=== PATIENT | male | born 1985 | race Two or more races ===

== ENCOUNTER 2022-06-11 11:37 | Outpatient (REF) | payer BC, SELFPAY ==
[2022-06-11 13:49] LABS: MANUAL DIFF FLAG NO
[2022-06-11 14:10] LABS: Basophils Absolute Auto 0.1 X10*3/uL (0.0-0.2); Eosinophils Absolute Auto 0.2 X10*3/uL (0.0-0.4); Eosinophils Percent Auto 3.8 % (0-4); Hematocrit 43.3 % (42.0-52.0); Hemoglobin 14.2 g/dl (14.0-18.0); Imm Gran Abs Auto 0.01 X10*3/uL (0.00-0.03); Imm Gran Pct Auto 0.2 % (0.0-0.4); Lymphocytes Absolute Auto 2.9 X10*3/uL (1.2-4.9); Lymphocytes Percent Auto 45.6 % (20-40); Mean Corpuscular HGB Conc 32.8 g/dl (31.0-36.0); Mean Corpuscular Hemoglobin 27.1 pg (27.0-33.0); Mean Corpuscular Volume 82.6 fL (80.0-98.0); Mean Platelet Volume 11.1 fL (9.4-12.4); Monocytes Absolute Auto 0.3 X10*3/uL (0.1-1.2); Monocytes Percent Auto 5.1 % (2-11); Neutrophils Absolute Auto 2.8 x10*3/uL (2.0-8.3); Neutrophils Percent Auto 44.3 % (45-73); Platelet Count 171 X10*3/uL (160-400); Red Blood Count 5.24 X10*6/uL (4.60-5.80); Red Cell Distribution Width 12.9 % (11.0-16.0); White Blood Count 6.3 X10*3/uL (4.8-10.8)
[2022-06-11 14:42] LABS: Alanine Aminotransferase 47 U/L (0-40); Albumin Level 4.3 g/dL (3.5-5.0); Alkaline Phosphatase 79 U/L (39-117); Anion Gap 10 (12-20); Aspartate Amino Transferase 29 U/L (5-37); Bilirubin Total 0.6 mg/dL (0.0-1.0); Blood Urea Nitrogen 17 mg/dL (9-16); C Reactive Protein 0.32 mg/dL (< or = 0.50); Calcium 9.1 mg/dL (8.4-10.2); Carbon Dioxide 26 mmol/L (22-29); Chloride 108 mmol/L (96-108); Estimated Glomerular Filt Rate > 60; Glucose Random 89 mg/dL (60-115); Iron 57 mcg/dL (45-160); Percent Iron Saturation 21 % (15-50); Potassium 4.2 mmol/L (3.3-5.1); Sodium 140 mmol/L (135-145); Total Iron Binding Capacity 271 mcg/dL (228-428); Total Protein 7.1 g/dL (6.5-8.0); Unsaturated Iron Binding 214 ug/dL
[2022-06-11 15:12] LABS: Folate 7.6 ng/mL (> or = 4.0); Vitamin B12 269 pg/mL (200-900); Vitamin D 25-OH Total 12.8 ng/mL (>30)
[2022-06-12 15:27] LABS: H Pylori Breath Test Positive (Negative)
[2022-06-14 08:03] LABS: IgA 182 mg/dL (47-310); IgG 1372 mg/dL (600-1640); IgM 101 mg/dL (50-300)
[2022-06-14 23:13] LABS: Vitamin C 0.9 mg/dL (0.2-2.1)
[2022-06-17 18:18] LABS: Vitamin A 43 mcg/dL (38-98)
[2022-06-19 07:39] LABS: Immunoglobulin G Subclass 1 518 mg/dL (382-929); Immunoglobulin G Subclass 2 509 mg/dL (241-700); Immunoglobulin G Subclass 3 114 mg/dL (22-178); Immunoglobulin G Subclass 4 31.5 mg/dL (4-86); Immunoglobulin G Total 1198 mg/dL (600-1640)
== END 2022-06-11 11:38 | disposition home or self-care (01) ==
LOC: HO.LAB 11:37
PROVIDERS: Visit Provider Internal Medicine Gastroenterology
DX: R10.13 Epigastric pain (principal); A04.8 Other specified bacterial intestinal infections; E46 Unspecified protein-calorie malnutrition; K75.81 Nonalcoholic steatohepatitis (NASH)
CPT/HCPCS: 36415; 80053; 82180; 82306; 82607; 82746; 82784; 83013; 83540; 84590; 85025; 86140

== ENCOUNTER → 2022-06-12 11:15 | Day surgery (SDC) | payer BC, SELFPAY ==
[2022-06-12 11:53] VITALS: BMI 23.6
[2022-06-12 12:12] VITALS: BP 121/60; PULSE 60; RESP 18; TEMP 36.6; O2SAT 100
[2022-06-12] MEDS: Lactated Ringers 1,000 ML 50 ML IVCONT (12:14)
--- NOTE | 2022-06-12 12:45 | HO.ANESPROP2 ---
[facility] Active Problems Active Problems: All Active Problems (Updated 06/12/22 @ 11:52 by Tasneem Maldonado RN) H. pylori infection (Acute) Epigastric abdominal pain (Acute) Malnutrition (Acute) Past Medical History Medical History Borderline high cholesterol GERD (gastroesophageal reflux disease) History of Helicobacter pylori infection Surgical History Surgical History Hx of wisdom tooth extraction Social History Social History Patient Tobacco Use Status: Never used Tobacco Use of substances other than those prescribed or required for medical reasons: No Are you DNR?: No Advance Directives: No Advance Directives Information Provided: Yes Meds Allergies Allergy/AdvReac Type Severity Reaction Status Date / Time bee pollen Allergy Mild Unknown Verified 06/11/22 11:54 Active Medications: Current Medications Lactated Ringer's (Lr) 1,000 mls @ 50 mls/hr IVCONT .Q20H ISHMAEL Last Admin: 06/12/22 12:14 Dose: 50 mls/hr Home Medications Medication Instructions Recorded Confirmed Last Taken Type bismuth subsalicylate 262 mg/15 mL 524 mg PO Q30M PRN Allergy Symptoms 06/11/22 06/12/22 Unknown History oral suspension (Pepto-Bismol) fexofenadine 60 mg tablet (Randa 60 mg PO BID 06/11/22 06/12/22 Unknown History Allergy) Exam Exam Date and Time: June 12, 2022 1245 Height,Weight and Vital Signs: Height 5 ft 9 in Weight 72.575 kg Last Vital Signs Temp 97.8 F 06/12/22 12:12 Pulse 60 06/12/22 12:12 Resp 18 06/12/22 12:12 BP 121/60 06/12/22 12:12 Pulse Ox 100 06/12/22 12:12 O2 Del Method Room Air 06/12/22 12:12 Airway Mallampati Class: II TM Dist: >3cm Neck ROM: Full Heart: RRR Lungs: CTA Assessment and Plan Final Anesthetic Review Patient Risk: Low Procedure Risk: Low Anesthetic Plan Anesthetic Plan: MAC: Disposition: Standard PACU
--- NOTE | 2022-06-12 13:03 | MHC.SHP ---
Pre-Procedural Eval Section A Date of Service: 06/12/22 The patient is an INPATIENT: No The History & Physical has been completed within 30 days and I have reviewed it.: Yes Section B Chief Complaint: protein-calorie malnutrition,epigastric pain, Allergies: Allergies Allergy/AdvReac Type Severity Reaction Status Date / Time bee pollen Allergy Mild Unknown Verified 06/11/22 11:54 Plan Diagnosis/Plan: Unchanged I have reviewed the history and physical and performed a pertinent physical examination on my patient. No changes have occurred unless specified. Time Spent With Patient Time: Total time managing care of this patient today ____ minutes.
--- NOTE | 2022-06-12 13:03 | W.PM.OPN ---
Operative Note Operative Note Date of Service: 06/12/22 Narrative: Procedure Description: EGD Indication: epigastric pain Anesthesia: MAC FLEXIBLE TRANSORAL UPPER GASTROINTESTINAL ENDOSCOPY UPPER ENDOSCOPY Consent: Indications for the procedure and potential complications of bleeding, perforation, reaction to medications and missed diagnosis were discussed with the patient and informed consent was obtained. Instrument: Olympus GIF H 190 J mid size upper endoscope Monitoring: Vital signs and clinical assessment, continuous EKG monitoring, Pulse oximetry, Carbon Dioxide monitoring and blood pressure monitoring were done throughout the procedure. Procedure: The patient was placed in the left lateral decubitis position and pre-procedure medications were administered and a bite block was placed. The endoscope was inserted into the mouth and advanced under direct vision to the third part of duodenum. A careful inspection was made as the upper endoscope was withdrawn including a retroflexed examination of the proximal stomach; Findings and interventions are described below. Findings: Larynx:normal Esophagus: GE junction at 40 cm, diaphragm hiatus at 40 cm, mild inflammation at GEJ, bx taken Stomach: mild gastric erythema. Biopsies were obtained. Grade 2 flap valve on retroflexed examination of the cardia. Duodenum: Patchy erythema, bx taken Intervention: Biopsies as noted above Impression/Findings: duodenitis mild gastritis mild esophagitis PLAN: await bx, samples also sent for H pylori C/S
[2022-06-12 13:41] VITALS: BP 114/62; PULSE 65; RESP 14; TEMP 36.4; O2SAT 99
[2022-06-12 13:56] VITALS: BP 109/68; PULSE 60; RESP 16; O2SAT 100
[2022-06-12 14:11] VITALS: BP 114/73; PULSE 60; RESP 16; TEMP 36.4; O2SAT 100
== END | disposition home or self-care (01) ==
PROVIDERS: Visit Provider Internal Medicine Gastroenterology
PROC: 0DJ08ZZ Inspection of Upper Intestinal Tract, Via Natural or Artificial Opening Endoscopic (ICD-10-PCS; CPT 43235; principal; 2022-06-12 13:00)
DX: K29.50 Unspecified chronic gastritis without bleeding (principal); B96.81 Helicobacter pylori [H. pylori] as the cause of diseases classified elsewhere; E46 Unspecified protein-calorie malnutrition; Z68.24 Body mass index [BMI] 24.0-24.9, adult; K20.80 Other esophagitis without bleeding; K29.80 Duodenitis without bleeding; K44.9 Diaphragmatic hernia without obstruction or gangrene; Z87.19 Personal history of other diseases of the digestive system; R14.2 Eructation; K21.9 Gastro-esophageal reflux disease without esophagitis; Z79.899 Other long term (current) drug therapy
CPT/HCPCS: 43239; 36415; 87081; 88305; 88342

== ENCOUNTER → 2022-07-16 11:47 | Outpatient (BNVA) | payer BC, SELFPAY | PROVIDERS: Visit Provider Internal Medicine Gastroenterology ==

== ENCOUNTER 2022-07-30 09:01 | Outpatient (REF) | payer BC, SELFPAY ==
[2022-07-31 13:06] LABS: H Pylori Breath Test Positive (Negative)
== END 2022-07-30 09:02 | disposition home or self-care (01) ==
LOC: HO.LNP 09:01
PROVIDERS: Visit Provider Internal Medicine Gastroenterology
DX: Z11.2 Encounter for screening for other bacterial diseases (principal)
CPT/HCPCS: 83013

== ENCOUNTER 2024-06-19 22:38 | Emergency (ER) | payer BC, SELFPAY ==
--- NOTE | ~2024-06-19 | CT_ITS ---
CLINICAL HISTORY: closed head injury CT head without contrast Comparison: None Findings: There is no acute intracranial hemorrhage. Ventricles are of normal size and shape. No mass effect or midline shift is present. The coley-white matter differentiation appears normal. The visualized portions of the orbits, paranasal sinuses, and mastoids are unremarkable. No fractures are identified. IMPRESSION: Normal noncontrast head CT. This document has been electronically signed by: Jose Raza MD on 06/20/2024 00:18:31
[2024-06-19 22:40] VITALS: BP 124/76; PULSE 59; RESP 18; TEMP 36.1; O2SAT 98; BMI 25.8
--- NOTE | 2024-06-19 23:28 | PC.NURSE ---
Reviewed discharge instructions with pt. pt verbalized understanding, no sign of distress.
[2024-06-19 23:29] VITALS: BP 124/76; PULSE 59; RESP 18; TEMP 36.1; O2SAT 98
--- NOTE | 2024-06-19 23:36 | ED.HEATRA ---
HPI - Head Injury General Chief complaint: Head Injury Stated complaint: head injury Time Seen by Provider: 06/19/24 22:40 Source: patient Mode of arrival: ambulatory Limitations: no limitations History of Present Illness ED Provider: HPI Narrative: Patient apparently got hit by the automatic glass door to his right forehead at around 13:30 since then complaining of headache dizziness forgetting words no nausea no vomiting no seizures patient not on any blood thinners Related Data Home Medications ?Medication ?Instructions ?Recorded ?Confirmed bismuth subsalicylate 262 mg/15 mL 524 mg PO Q30M PRN Allergy Symptoms 06/11/22 06/12/22 oral suspension (Pepto-Bismol) fexofenadine 60 mg tablet (Randa 60 mg PO BID 06/11/22 06/12/22 Allergy) Previous Rx's ?Medication ?Instructions ?Recorded bismuth subsalicylate 262 mg 2 tab PO QID 14 days #112 tabs 06/21/22 chewable tablet cholecalciferol (vitamin D3) 25 25 mcg PO DAILY #90 caps 06/21/22 mcg (1,000 unit) capsule metronidazole 500 mg tablet 500 mg PO TID 14 days #42 tabs 06/21/22 pantoprazole 20 mg tablet,delayed 20 mg PO BID 2 weeks #28 tabs 06/21/22 release tetracycline 500 mg capsule 500 mg PO Q6H 14 days #56 caps 06/21/22 Allergies Allergy/AdvReac Type Severity Reaction Status Date / Time bee pollen Allergy Mild Unknown Verified 06/19/24 22:42 Review of Systems Review of Systems: Yes all other systems are reviewed and are negative [facility] Past Medical History Medical History History of Helicobacter pylori infection GERD (gastroesophageal reflux disease) Borderline high cholesterol Surgical History History of esophagogastroduodenoscopy (EGD) Hx of wisdom tooth extraction Social History Social History Patient Tobacco Use Status: Never used Tobacco Advance Directives: No Advance Directives Information Provided: No Do you have a plan to hurt others: No Plan Physical Exam Vital Signs: Vital Signs: Last Vital Signs Temp 97.0 F 06/19/24 23:29 Pulse 59 06/19/24 23:29 Resp 18 06/19/24 23:29 BP 124/76 06/19/24 23:29 Pulse Ox 98 06/19/24 23:29 O2 Del Method Room Air 06/19/24 23:29 BMI result Body Mass Index 25.8 Appearance: Alert. Oriented X3. No acute distress. Eyes: PERRLA, No Nystagmus HEENT: Pharynx normal. Oral Mucosa moist soft tissue swelling right forehead Neck: Normal inspection. Neck supple. CVS: Normal heart rate and rhythm. Pulses normal. Respiratory: No respiratory distress. Equal air entry bilateral, no wheezing/rales/rhonchi Abdomen: Soft and nontender. Bowel sounds are present, no mass palpable, no CVA tenderness Skin: Skin warm and dry. Normal skin color. Normal skin turgor. Extremities: No lower extremity edema. No calf tenderness Neuro: Oriented X 3. No motor deficit. No sensory deficit.No cerebellar signs , cranial nerves II-XII intact Medical Decision Making Medical Decision Making MDM Narrative: Patient is status post minor head injury CT scan of the head is negative for acute eyes precautions and follow up with PCP Radiology Impression Discussion of test interpretation with radiology: I have reviewed the radiologist's reading. Radiologist Impression: Normal noncontrast head CT. Discharge Plan Discharge Clinical Impression: Closed head injury Patient Disposition: Home, Self-Care Instructions: Head Injury (ED) Additional Instructions: Care and cautions as advised Report to ER if increased vomiting/seizure/focal deficit Prescriptions: No Action metronidazole 500 mg tablet 500 mg PO TID 14 Days Qty: 42 0RF pantoprazole 20 mg tablet,delayed release (DR/EC) 20 mg PO BID 14 Days Qty: 28 0RF bismuth subsalicylate 262 mg tablet,chewable 2 tab PO QID 14 Days Qty: 112 0RF tetracycline 500 mg capsule 500 mg PO Q6H 14 Days Qty: 56 0RF cholecalciferol (vitamin D3) 25 mcg (1,000 unit) capsule 25 mcg PO DAILY Qty: 90 2RF fexofenadine [Randa Allergy] 60 mg tablet 60 mg PO BID bismuth subsalicylate [Pepto-Bismol] 262 mg/15 mL suspension 524 mg PO Q30M PRN (Reason: Allergy Symptoms) Rx Instructions: do not exceed 8 doses in a 24 hour period Interventions: ED Discharge Assessment Last Done: 06/19/24 23:29 Discharge Date/Time: 06/19/24 23:30 Print Language: Bulgarian
== END 2024-06-19 23:30 | disposition home or self-care (01) ==
PROVIDERS: Emergency Provider Internal Medicine
DX: S09.90XA Unspecified injury of head, initial encounter (principal); W22.8XXA Striking against or struck by other objects, initial encounter; Y93.9 Activity, unspecified; Y92.9 Unspecified place or not applicable; Y99.9 Unspecified external cause status
CPT/HCPCS: 70450; 99284

== ENCOUNTER → 2024-06-19 22:40 | Outpatient (BNV) | payer BC, SELFPAY | PROVIDERS: Emergency Provider Internal Medicine; Visit Provider Radiology Diagnostic Radiology | DX: S06.0X0A Concussion without loss of consciousness, initial encounter (principal) | CPT/HCPCS: 70450 ==

== ENCOUNTER → 2024-08-24 00:04 | Outpatient (BNV) | payer BC, SELFPAY | PROVIDERS: Emergency Provider Internal Medicine; PCP Internal Medicine; Visit Provider Radiology Diagnostic Radiology | DX: M25.512 Pain in left shoulder (principal) | CPT/HCPCS: 71045; 73030 ==

== ENCOUNTER 2024-08-24 00:38 | Emergency (ER) | payer BC, SELFPAY ==
--- NOTE | ~2024-08-24 | XR_ITS ---
CLINICAL HISTORY: shoulder pain 3 view left shoulder Comparison: None provided Findings: Bones intact. No dislocations. The left humeral head is appropriately positioned with respect to the left glenoid. No radiopaque foreign body. IMPRESSION: 1. No acute fracture or dislocation injury identified at the left shoulder. This document has been electronically signed by: Crow Flores MD on 08/24/2024 02:06:36
--- NOTE | ~2024-08-24 | XR_ITS ---
CLINICAL HISTORY: l shoulder pain ?cardiac 1 view chest x-ray. Comparison: None provided. Findings: No consolidation, pneumothorax, or effusion. Heart size normal. Impression: 1. No acute cardiopulmonary process. No focal pulmonary consolidation. This document has been electronically signed by: Crow Flores MD on 08/24/2024 03:57:10
[2024-08-24 00:45] VITALS: BP 122/86; PULSE 62; RESP 16; TEMP 36.6; O2SAT 97; BMI 26.3
--- NOTE | 2024-08-24 00:54 | ECG_ITS ---
Test Reason : CHEST PAIN Blood Pressure : */* mmHG Vent. Rate : 54 BPM Atrial Rate : 54 BPM P-R Int : 166 ms QRS Dur : 86 ms QT Int : 416 ms P-R-T Axes : 64 22 50 degrees QTcB Int : 394 ms Sinus bradycardia Otherwise normal ECG No previous ECGs available Referred By: Generic ED Physician Electronically Signed By: SHEILA MONTENEGRO
--- NOTE | 2024-08-24 00:58 | ED_ITS ---
HPI - Extremity Problem General Chief complaint: Extremity Injury, Upper Stated complaint: Left arm pain Time Seen by Provider: 08/24/24 00:57 Source: patient Mode of arrival: ambulatory Limitations: no limitations History of Present Illness ED Provider: HPI Narrative: Patient has no known coronary artery disease but does have strong family history of coronary artery disease in involving his father and uncles with the age of 40s patient is nonsmoker active,thin built comes here for left shoulder pain patient does have frequent shoulder problems and had a massage earlier yesterday and in the evening noticed pain in the left shoulder and the left forearm which is dull with slight numbness feeling pain is intermittent lasting only for few minutes no shortness a breath. Patient does have chronic left shoulder pain no neck injury no recent injury Related Data Home Medications ?Medication ?Instructions ?Recorded ?Confirmed bismuth subsalicylate 262 mg/15 mL 524 mg PO Q30M PRN Allergy Symptoms 06/11/22 06/12/22 oral suspension (Pepto-Bismol) fexofenadine 60 mg tablet (Randa 60 mg PO BID 06/12/22 Allergy) Previous Rx's ?Medication ?Instructions ?Recorded bismuth subsalicylate 262 mg 2 tab PO QID 14 days #112 tabs 06/21/22 chewable tablet cholecalciferol (vitamin D3) 25 25 mcg PO DAILY #90 ca ps 06/21/22 mcg (1,000 unit) capsule metronidazole 500 mg tablet 500 mg PO TID 14 days #42 tabs 06/21/22 pantoprazole 20 mg tablet,delayed 20 mg PO BID 2 weeks #28 tabs 06/21/22 release tetracycline 500 mg capsule 500 mg PO Q6H 14 days #56 caps 06/21/22 cyclobenzaprine 10 mg tablet 10 mg PO TID #10 tabs Allergies Allergy/AdvReac Type Severity Reaction Status Date / Time pollen extracts Allergy Itchy Eyes Verified 08/24/24 00:53 Review of Systems 2 Review of Systems: Yes all other systems are reviewed and are negative [facility] Past Medical History Medical History History of Helicobacter pylori infection GERD (gastroesophageal reflux disease) Borderline high cholesterol Surgical History History of esophagogastroduodenoscopy (EGD) Hx of wisdom tooth extraction Social History Social History Patient Tobacco Use Status: Never used Tobacco Advance Directives: No Advance Directives Information Provided: No Do you have a plan to hurt others: No Plan Physical Exam 2 Vital Signs: Vital Signs: Last Vital Signs Temp 97.6 F 08/24/24 02:58 Pulse 57 08/24/24 02:58 Resp 16 08/24/24 02:58 BP 123/70 08/24/24 02:58 Pulse Ox 98 08/24/24 02:58 O2 Del Method Room Air 08/24/24 02:58 BMI result Body Mass Index 26.3 Appearance: Alert. Oriented X3. No acute distress. Eyes: PERRLA, No Nystagmus ENT: Pharynx normal. Oral Mucosa moist Neck: Normal inspection. Neck supple. CVS: Normal heart rate and rhythm. Pulses normal. Respiratory: No respiratory distress. Equal air entry bilateral, no wheezing/rales/rhonchi Abdomen: Soft and nontender. Bowel sounds are present, no mass palpable, no CVA tenderness Skin: Skin warm and dry. Normal skin color. Normal skin turgor. Extremities: No lower extremity edema. No calf tenderness local tenderness left trapezius area no objective findings Neuro: Oriented X 3. No motor deficit. No sensory deficit.No cerebellar signs , cranial nerves II-XII intact Course Reevaluation(s) Reevaluation #1: Second cardiac enzyme is negative. Patient is resting comfortably, stable for discharge at this point. Discussed importance of follow-up as well as strict return precautions. Provided with muscle relaxer for shoulder pain. Discharged in stable condition. Time: 03:52 Medical Decision Making Medical Decision Making MDM Narrative: Patient has atypical left-sided shoulder pain no left-sided chest but does have a strong family history of cardiac events at age of 40s initial troponin EKG negative at this time patient is asymptomatic will repeat cardiac enzymes in 2 hours Differential Diagnosis Differential Diagnoses: The differential diagnosis associated with the presentation includes ACS/costochondritis/chest wall/shoulder pain Lab Data [facility] Lab Attestation statement: I reviewed the patient's lab results. 08/24/24 01:09 08/24/24 01:09 Labs: Lab Results 07/14/25 07/14/25 Range/Units 01:09 02:58 WBC 7.8 (4.8-10.8) X10*3/uL RBC 4.93 (4.60-5.80) X10*6/uL Hgb 13.5 L (14.0-18.0) g/dl Hct 38.1 L (42.0-52.0) % MCV 77.3 L (80.0-98.0) fL MCH 27.4 (27.0-33.0) pg MCHC 35.4 (31.0-36.0) g/dl RDW 12.9 (11.0-16.0) % Plt Count 159 L (160-400) X10*3/uL MPV 10.6 (9.4-12.4) fL Immature Gran % (Auto) 0.1 (0.0-0.4) % Neut % (Auto) 39.1 L (45-73) % Lymph % (Auto) 48.1 H (20-40) % Burke % (Auto) 7.4 (2-11) % Eos % (Auto) 4.7 H (0-4) % Baso % (Auto) 0.6 (0-2) % Lymph # (Auto) 3.8 (1.2-4.9) X10*3/uL Burke # (Auto) 0.6 (0.1-1.2) X10*3/uL Eos # (Auto) 0.4 (0.0-0.4) X10*3/uL Baso # (Auto) 0.1 (0.0-0.2) X10*3/uL Abs Immat Gran (auto) 0.01 (0.00-0.03) X10*3/uL Absolute Neuts (auto) 3.1 (2.0-8.3) x10*3/uL Absolute Nucleated RBC 0.000 (0.0-0.012) X10*3/uL Nucleated RBC % (auto) 0.0 (0.0-0.2) /100WBC Sodium 143 (135-145) mmol/L Potassium 4.1 (3.3-5.1) mmol/L Chloride 112 H (96-108) mmol/L Carbon Dioxide 21 L (22-29) mmol/L Anion Gap 14 (12-20) BUN 22 H (9-16) mg/dL Creatinine 1.11 (0.5-1.4) mg/dL Estim Creat Clear Calc 87.5 Estimated GFR > 60 Random Glucose 113 (60-115) mg/dL Calcium 9.3 (8.4-10.2) mg/dL Total Bilirubin 0.3 (0.0-1.0) mg/dL AST 34 (5-37) U/L ALT 48 H (0-40) U/L Alkaline Phosphatase 84 (39-117) U/L Troponin I High Sens < 2.7 < 2.7 (<3.5-35.0) ng/L Total Protein 6.9 (6.5-8.0) g/dL Albumin 4.2 (3.5-5.0) g/dL Independent Interpretation I performed an independent interpretation of an: EKG Interpretation: Sinus bradycardia with ventricular rate of 54 beats per minute normal interval normal axis no acute ST-T changes no acute ischemia Discharge Plan Discharge Clinical Impression: Arm pain, left Patient Disposition: Home, Self-Care Instructions: Arm Pain (ED) Additional Instructions: Clinically is unlikely you have coronary syndrome at this time follow with your PCP if recurrence of the pain or pain gets worse for further evaluation Prescriptions: New cyclobenzaprine 10 mg tablet 10 mg PO TID Qty: 10 0RF No Action metronidazole 500 mg tablet 500 mg PO TID 14 Days Qty: 42 0RF pantoprazole 20 mg tablet,delayed release (DR/EC) 20 mg PO BID 14 Days Qty: 28 0RF bismuth subsalicylate 262 mg tablet,chewable 2 tab PO QID 14 Days Qty: 112 0RF tetracycline 500 mg capsule 500 mg PO Q6H 14 Days Qty: 56 0RF cholecalciferol (vitamin D3) 25 mcg (1,000 unit) capsule 25 mcg PO DAILY Qty: 90 2RF fexofenadine [Randa Allergy] 60 mg tablet 60 mg PO BID bismuth subsalicylate [Pepto-Bismol] 262 mg/15 mL suspension 524 mg PO Q30M PRN (Reason: Allergy Symptoms) Rx Instructions: do not exceed 8 doses in a 24 hour period Print Language: Kyrgyz
[2024-08-24 01:16] LABS: Hematocrit 38.1 % (42.0-52.0); Hemoglobin 13.5 g/dl (14.0-18.0); Imm Gran Abs Auto 0.01 X10*3/uL (0.00-0.03); Imm Gran Pct Auto 0.1 % (0.0-0.4); Lymphocytes Absolute Auto 3.8 X10*3/uL (1.2-4.9); MANUAL DIFF FLAG NO; Mean Corpuscular HGB Conc 35.4 g/dl (31.0-36.0); Mean Corpuscular Hemoglobin 27.4 pg (27.0-33.0); Mean Corpuscular Volume 77.3 fL (80.0-98.0); NRBC Abs Auto 0.000 X10*3/uL (0.0-0.012); NRBC Pct Auto 0.0 /100WBC (0.0-0.2); Platelet Count 159 X10*3/uL (160-400); Red Blood Count 4.93 X10*6/uL (4.60-5.80); White Blood Count 7.8 X10*3/uL (4.8-10.8)
--- OUTSIDE RECORDS SUMMARY | 2024-08-24 01:27 | XMS_ITS | Clinical Summary ---
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 Name Role Phone Unavailable Primary Care Provider Unavailabl e Social History Tobacco Use Types Packs/Day Years Used Date Smoking Tobacco: Never Assessed Sex and Gender Information Value Date Recorded Sex Assigned at Not on file Gender Identity Not on file Sexual Orientation Not on file Job Start Date Occupation Industry Not on file Not on file Not on file Plan of Treatment Health Maintenance Due Date Last Done Comments Hepatitis B Vaccines (1 of 3 - 3-dose series) 1983 Hepatitis C Screening 1983 COVID-19 Vaccine (#1) 1983 Depression Screening 1995 Preventative Health Evaluation 05/07/2001 DTap / Tdap / Td (1 - Tdap) 05/07/2002 Influenza Vaccine (#1) 2024 Pneumococcal Vaccine Aged Out No long er eligible based on patient's age to complete this topic RSV Ped < 20 months Aged Out No longe r eligible based on patient's age to complete this topic
--- OUTSIDE RECORDS SUMMARY | 2024-08-24 01:27 | XMS_ITS | Clinical Summary ---
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 [employer] Panels Name Role Phone Bud Marie MD Primary Care Provider [phone] Social History Tobacco Use Types Packs/Day Years Used Date Smoking Tobacco: Never Assessed Sex and Gender Information Value Date Recorded Sex Assigned at Not on file Legal Sex Male 11:41 AM EDT Gender Identity Not on file Sexual Orientation Not on file Plan of Treatment Health Maintenance Due Date Last Done Comments Hepatitis C Virus Screening 1983 HIV Screening 05/07/1996 DTaP/Tdap/Td Vaccines (1 - Tdap) 05/07/2002 Hepatitis B Vaccines (1 of 3 - 19+ 3-dose series) 05/07/2002 COVID-19 Vaccine (2 - 2023-2 5 season) 2023 09/11/2020 HPV Vaccines Aged Out No longer eligi ble based on patient's age to complete this topic Pneumococcal Vaccine: Pediat marco antonio (0-5 Years) and At-Risk Patients (6 to 49 Years) Aged Out No longer eligible b ased on patient's age to complete this topic Care Teams [employer]ater [employer] Relationship Specialty Start Date End Date Bud Marie MD [facility] [place] [address] PCP - General Internal Medicine 11/22/21
--- OUTSIDE RECORDS SUMMARY | 2024-08-24 01:27 | XMS_ITS | Clinical Summary ---
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 Forwarder Name Role Phone Unavailable Primary Care Provider Unavailabl e Social History Tobacco Use Types Packs/Day Years Used Date Smoking Tobacco: Never Assessed Sex and Gender Information Value Date Recorded Sex Assigned at Not on file Legal Sex Male 9:33 AM EST Gender Identity Not on file Sexual Orientation Not on file Plan of Treatment Health Maintenance Due Date Last Done Comments DTaP,Tdap,and Td Vaccines (1 - Tdap) 05/07/2002 Hepatitis B Vaccines (1 of 3 - 19+ 3-dose series) 05/07/2002 Cholesterol Screening (Lipid Panel) 01/08/2022 Depression Screening 01/08/2022 HIV Screening 01/08/2022 Hepatitis C Screening 01/08/2022 Social Influencers of Health Screening 01/08/2022 COVID-19 Vaccine (2023-2 5 season) 2023 Influenza Vaccine (#1) 2024 HIB Vaccines Aged Out No longer eligi ble based on patient's age to complete this topic HPV Vaccines Aged Out No longer eligi ble based on patient's age to complete this topic Hepatitis A Vaccines Aged Out No long er eligible based on patient's age to complete this topic IPV Vaccines Aged Out No longer eligi ble based on patient's age to complete this topic MMR Vaccines Aged Out No longer eligi ble based on patient's age to complete this topic Meningococcal ACWY Vaccine Aged Out N o longer eligible based on patient's age to complete this topic Meningococcal B Vaccine Aged Out No l onger eligible based on patient's age to complete this topic Pneumococcal Vaccine: Pediat rics (0 to 5 Years) and At-Risk Patients (6 to 49 Years) Aged Out No longer eligible b ased on patient's age to complete this topic RSV Immunization Patients Un benton 20 months Aged Out No longer eligible b ased on patient's age to complete this topic Varicella Vaccines Aged Out No longer eligible based on patient's age to complete this topic
--- OUTSIDE RECORDS SUMMARY | 2024-08-24 01:27 | XMS_ITS | Data Portability ---
Author Organization [place] [facility] Address [address] [place] [id number] Assessment Encounter Date Assessment Date Assessment LastModified by Organization Details LastModified Time 07/04/2020 07/04/2020 Overview/History : 35 y/o M w/ seasonal allergies who was seen today for COVID-19 testing due to acute onset of rhinorrhea, nasal congestion, itchy eyes, itchy throat, and intermittent HAs x1-2 days. He denies CP, SOB, fevers, chills, N/V/D body aches, loss of smell or taste. No recent travel or potential exposure to infected individuals. Has not taken any OTC meds, except for Randa. Exam: Non-toxic appearing, well nourished. A/Ox3, CN I-XII WNL, equal smile, equal strength bilat, no pronator drift noted, normal coordination noted. HEENT: Normal cephalic, skin intact. PERRLA, no evidence of foreign objects. Turbinates pink, non boggy, no erythema, no evidence of bleeding or discharge, normal mucous membranes. No evidence of thrush, normal appearing pharynx, tonsiles present non erythemic, no exudate present, no evidence of cobble stoning. Normal lymph nodes, no lymphedema or adenopathy noted. LS CTA bilaterally. Normal RR on RA and no use of accessory muscles. HR and rhythm regular. S1, S2. No murmur, rub, or gallop. Normal pulses, no edema. Normal ROM, ambulating well. Good CMs present. Skin CDI - no evidence of rash, ecchysmosis, erythema, wounds, or lacerations. DDx considered, but not limited to: COVID-19: considered given recent hx of symptoms, although PE is benign. Rapid COVID-19 nasal swab performed on exam, which was negative. A COVID-19 nasal swab was obtained and sent to the lab URI/Viral Pharyngitis/Ced rgic Rhinitis: considered due to recent hx of symptoms and may potentially be ddx if he is confirmed negative for COVID Work up/Results: Rapid COVID-19 nasal swab negative COVID-19 PCR nasal swab obtained and sent to the lab Plan/Discussion: -Rapid COVID-19 nasal swab performed today was negative. A COVID-19 PCR nasal swab was obtained and sent to the lab for further evaluation. Pt was informed that the test typically takes 2-3 days to be resulted -Encouraged to obtain adequate rest and hydration daily as tolerated -Follow up w/ PCP as directed, especially if symptoms persist and he is confirmed negative for COVID -ER precautions discussed and pt verbalized understanding of all instructions In order to obtain further information and compare any laboratory results/values, I have accessed patient records on the [employer] [facility]. This information was pertinent in my medical decision making today. Time On Scene with Patient: 00:55:40 [email or web address] Not available 07/04/2020 14:44:39 Plan of Treatment Reminders Order Date Submit Date Provider Last Modified By Organization Details Last Modified Time Details Appointments None recorded. Lab rapid SARS CoV + SARS CoV 2 Ag, QL IA, respiratory specimen 2020 021 [email or web address] [facility], [address] [place] [address], [address], [place], [address], 13:56:13 SARS-CoV-2 N gene QL, ROSHAN + probe detection, nasopharynx 2020 021 [facility], [address] [place] [address], [phone], 14:10:55 Referral None recorded. Procedures None recorded. Surgeries None recorded. Imaging None recorded. Medication Orders None recorded. Patient TargetsNo targets recorded. Patient InstructionsNo instructions recorded. Reason for Referral None Reported. Results Created Date Observation Date Name Description Value Unit Range Abnormal Flag Note LastModifiedBy Organization Detail LastModifiedTime 07/05/19 21 07/04/2020 rapid SARS CoV + SARS CoV 2 Ag, QL IA, respi rator y speci men Covid-19 negati ve Not Available [facility] - Home [address], [place], [address], 07/04/2020 13:47:11 07/05/19 21 07/04/2020 rapid SARS CoV + SARS CoV 2 Ag, QL IA, respi rator y speci men Control Visual ized/V alid Not Available [facility] - Home 200 [facility] [address], [place], [address], 07/04/2020 13:47:11 Result Notes None recorded. Medical Equipment None Reported. Medications Name Sig Start Date Stop Date Status Note LastModified by Organization Details LastModified Time ergocalcifer ol (vitamin D2) 1,250 mcg (50,000 unit) capsule TK 1 C PO Q WEEKLY active Not Available Not Available No t Available epinephrine 0.3 mg/0.3 mL injection, auto-injecto r USE DIRECTED IN CASE OF ANAPHYLACTI C REACTION. ONCE USED PLEASE CALL 911 active Not Available Not Available No t Available Randa active Not Available Not Avail able Not Available Vitals Date Recorded Respiratory rate Body temperature Oxygen saturation Oxygen saturation in Arterial blood by Pulse oximetry Heart rate Systolic And Diastolic Provider Name and Address Organization Details Last Updated DateTime 16 /min 98.4 [degF] 97 % 97 % 64 /min 118/72 mm[Hg] Not Available [facility] 13:37:32 Social History None recorded. Functional Status None recorded. Mental Status None recorded. Family History Relationship Description Onset Age of this Age Resolved Age Notes LastModified by Organization Details LastModified Time Father Heart disease [email or web address] Not available 2020 13:31:31 Father Diabetes mellitus rtappin Not available 2020 13:31:41 Medical History Condition Response Diabetes N Coronary Artery Disease N Cancer N Stroke N Depression N COPD N Asthma N High Cholesterol N Pulmonary Embolism N Hypertension N Kidney Disease N Past Encounters Encounter ID Performer Location Encounter Start Date Encounter Closed Date Diagnosis/Indication Diagnosis SNOMED-CT Code Diagnosis ICD10 Code Diagnosis Note [id number] EVELYN NAVA NP [facility] [address] [place] [address],[address] [facility] [place] [place] [address] 07/04/2020 13:21:43 07/05/2020 17:06:22 Nasal congestion 83144212 R09.81 Suspected COVID-19 71933 4004 Z20.822 Health Concerns Section Related Observation LastModified by Organization Detai ls LastModified Time None Recorded Concern Status LastModified by Organization Details LastModified Time None Recorded Advance Directives Directive None Recorded Payers Insurance Date Sequence Insurance Name Policy Number Policy Myrick Covered Member ID Myrick Member ID Guarantor Name 07/04/2020 1 [place] [id number] Mohammad Ahmad [id number] Mohammad Ahmad 07/04/2020 1 [place] [id number] Mohammad Ahmad [id number] Mohammad Ahmad 07/05/2020 1 [place] [id number] Mohammad Ahmad [id number] Mohammad Ahmad 07/05/2020 1 [place] [id number] Mohammad Ahmad [id number] Mohammad Ahmad 07/05/2020 1 [place] [id number] Mohammad Ahmad [id number] Mohammad Ahmad 07/04/2020 1 [place] [id number] Mohammad Ahmad [id number] Mohammad Ahmad 07/04/2020 1 [place] [id number] Mohammad Ahmad [id number] Mohammad Ahmad 07/04/2020 1 [place] [id number] Mohammad Ahmad [id number] Mohammad Ahmad 07/04/2020 1 *SELF PAY* Mohammad Ahmad [id number] Mohammad Ahmad Notes Date Note Type Note Provider Name and Address Organization Details Recorded Time 07/04/2020 text/html 35 y/o M w/ seasonal allergies who was seen today for COVID-19 testing due to acute onset of rhinorrhea, nasal congestion, itchy eyes, itchy throat, and intermittent HAs x1-2 days. He denies CP, SOB, fevers, chills, N/V/D body aches, loss of smell or taste. No recent travel or potential exposure to infected individuals. Has not taken any OTC meds, except for Randa. EVELYN NAVA, LEANA [address], [place], [address], [place] - [facility] 07/04/2020 14:52:38
[2024-08-24 01:29] LABS: Alanine Aminotransferase 48 U/L (0-40); Albumin Level 4.2 g/dL (3.5-5.0); Alkaline Phosphatase 84 U/L (39-117); Anion Gap 14 (12-20); Aspartate Amino Transferase 34 U/L (5-37); Blood Urea Nitrogen 22 mg/dL (9-16); Calcium 9.3 mg/dL (8.4-10.2); Carbon Dioxide 21 mmol/L (22-29); Chloride 112 mmol/L (96-108); Creatinine Clr Calc Pharmacy 87.5; Estimated Glomerular Filt Rate > 60; Potassium 4.1 mmol/L (3.3-5.1); Sodium 143 mmol/L (135-145); Total Protein 6.9 g/dL (6.5-8.0)
[2024-08-24 01:43] LABS: Troponin-I High Sensitivity < 2.7 ng/L (<3.5-35.0)
[2024-08-24 02:58] VITALS: BP 123/70; PULSE 57; RESP 16; TEMP 36.4; O2SAT 98
[2024-08-24 03:25] LABS: Troponin-I High Sensitivity < 2.7 ng/L (<3.5-35.0)
[2024-08-24 03:56] VITALS: BP 123/70; PULSE 57; RESP 16; TEMP 36.4; O2SAT 98
== END 2024-08-24 03:56 | disposition home or self-care (01) ==
PROVIDERS: Emergency Provider Internal Medicine; PCP Internal Medicine
DX: M79.602 Pain in left arm (principal); M25.512 Pain in left shoulder; R05.9 Cough, unspecified
CPT/HCPCS: 36415; 71045; 73030; 80053; 84484; 85025; 93005; 99283; 99284

== ENCOUNTER → 2024-08-24 00:54 | Outpatient (BNV) | payer BC, SELFPAY | PROVIDERS: Emergency Provider Internal Medicine; PCP Internal Medicine; Visit Provider Internal Medicine | DX: R00.1 Bradycardia, unspecified (principal) | CPT/HCPCS: 93010 ==